=== PATIENT | female | born 1990 | race African-American/Black ===

== ENCOUNTER 2020-04-27 06:05 | Inpatient (IN) ==
[2020-04-27] MEDS ORDERED: LR 1000 ML IV 1,000 ML IV ONE (06:31)
[2020-04-27] MEDS ORDERED: ANCEF 1 GRAM IV PREMIX* 2 G/100 ML BAG IV ONE (06:31)
[2020-04-27] MEDS ORDERED: DECADRON INJ ONE (06:56)
[2020-04-27] MEDS ORDERED: NS 1000 ML 2,000 ML ONE (06:57)
[2020-04-27] MEDS ORDERED: DILAUDID INJ ONE (06:57)
[2020-04-27] MEDS ORDERED: ANCEF 1 GRAM IV PREMIX* 1 G/50 ML BAG IV ONE (07:08)
[2020-04-27] MEDS ORDERED: MARCAINE SPINAL ONE (07:40)
[2020-04-27] MEDS ORDERED: XYLOCAINE 1 % (PLAIN) ONE (07:40)
[2020-04-27] MEDS ORDERED: EPHEDRINE SULFATE INJ ONE (07:40)
[2020-04-27] MEDS ORDERED: PITOCIN ONE ×2 (07:40→09:06)
[2020-04-27] MEDS ORDERED: ZOFRAN INJ 4 MG VIAL ONE (07:40)
[2020-04-27] MEDS ORDERED: HEMABATE IM ONE (08:23)
[2020-04-27] MEDS ORDERED: NS 1000 ML 1,000 ML ONE (09:06)
[2020-04-27] MEDS ORDERED: REGLAN INJ 10 MG VIAL IVP PRN (09:33)
[2020-04-27] MEDS ORDERED: ZOFRAN INJ 4 MG VIAL IVP PRN ×2 (09:33→11:14)
[2020-04-27] MEDS ORDERED: BENADRYL INJ 50 MG VIAL IVP PRN (09:33)
[2020-04-27] MEDS ORDERED: DILAUDID INJ IVP PRN (09:33)
[2020-04-27] MEDS ORDERED: PHENERGAN INJ 25 MG IM PRN ×2 (09:33→11:14)
[2020-04-27] MEDS ORDERED: MYLICON TAB 80 MG CHEW PO PRN (09:43)
[2020-04-27] MEDS ORDERED: MOTRIN TAB 800 MG PO PRN (09:43)
[2020-04-27] MEDS ORDERED: D5 1/2 NS 1000 ML 1,000 ML with PITOCIN 20 UNITS IV SCH ×2 (10:00)
[2020-04-27] MEDS: TORADOL 30 MG VIAL IVP SCH ×3 (11:10→22:20)
[2020-04-27] MEDS: VALTREX PO SCH (11:46)
[2020-04-28] MEDS: TORADOL 30 MG VIAL IVP SCH (05:00)
[2020-04-28 06:06] LABS: HEMATOCRIT 26.3 % (36.0-47.0); HEMOGLOBIN 8.9 g/dL (12.0-16.0)
[2020-04-28] MEDS ORDERED: PRENATAL MULTIVIT MIN FE FA PO SCH (09:00)
[2020-04-28] MEDS ORDERED: PRENATAL PLUS PO SCH (09:00)
[2020-04-28] MEDS ORDERED: TORADOL 30 MG VIAL IM PRN (09:45)
[2020-04-28] MEDS ORDERED: TORADOL 30 MG VIAL IVP PRN (09:45)
[2020-04-28] MEDS: VALTREX PO SCH (10:16)
[2020-04-28 13:13] VITALS: BP 132/82
--- NOTE | 2020-04-28 14:45 | NOTE.PROBC ---
Progress Note OB-C/S Subjective Data Subjective: No complaints, decreased lochia. Tolerating regular diet. No N/V. Ambulating well. Aguilar draining well. Pain under good control with motrin. Objective Data Result Diagrams: 04/28/20 05:10 Objective Data: CV= RRR no MRG Lungs=CTA Bilaterally Abd=(+) BS, soft, ND, appropriately tender near incision. Bandage removed. Incision clean/dry/intact, no erythema, no bleeding, no discharge. Dermabond/Sti tches intact. Fundus firm/NT/ at 2 cm below umbilicus. Ext= No edema, NT, No Cords. Graduated Compression Stockings/Sequential Compression Devices Bilaterally. Plan (1) Twin delivery by : Plan: requesting early discharge
== END 2020-04-28 16:38 | disposition home or self-care (01) | DRG 785 ==
LOC: LD 06:05 → MED/SURG 10:51
PROVIDERS: ADMIT Obstetrics & Gynecology; ATTEND Obstetrics & Gynecology
DX: Z30.2 Encounter for sterilization; Z3A.37 37 weeks gestation of pregnancy; Z37.2 Twins, both liveborn; O30.043 Twin pregnancy, dichorionic/diamniotic, third trimester